=== PATIENT | female | born 2000 | race Caucasian/White ===

== ENCOUNTER 2024-01-26 23:01 | Emergency (ER) | payer OTHER, SELFPAY ==
[2024-01-26 23:03] VITALS: BP 180/106
[2024-01-27 00:21] VITALS: BMI 41.0
[2024-01-27] MEDS: TYLENOL 650 MG PO (00:31)
--- NOTE | 2024-01-27 01:18 | ED.GENMED ---
History of Present Illness
General
Chief Complaint: Musculo-Skeletal Complaint
Source: patient
Exam Limitations: none
Time Seen by Provider: 01/27/24 01:11
Nursing documentation reviewed up to this point in time: agreed with
Travel History
Have you had any contact with someone who has COVID-19?: No
Do you have any symptoms of coronavirus? Fever > 100 degrees, chills, cough, shortness of breath, sore throat, loss of taste or smell, muscle aches, or headache?: No
History of Present Illness
History of Present Illness:
pt is a 24 y/O F with h/o asthma, GERD
here with left lateral ankle pain/swelling after falling down abou 5 steps today
she inverted and scraped in lef tankle
she has been able to walk but has had increasing swelling and pain
no fever, chills, head strike, nauea, vomiting, syncope, knee pain
Past History
Past History
ED Past Medical History: GERD, Psychiatric (Depression, ADHD, ) and Other (Recurrent right lower quadrant pain, right ovarian cyst.)
ED Past Surgical History: Appendectomy and Tonsilectomy
Social History
Tobacco: Non-smoker
Alcohol: None
Personal: Single
Living: with family
Employment: Employed
Family History
Family History: Other (noncontributory)
Review of Systems
Review of Systems
Allergies reviewed?: Yes
All Other Systems: Not applicable
Phy Exam
Physical Exam
Physical Exam:
GENERAL: Alert , in no apparent distress, comfortable at rest
HEAD: NCAT
CV: 2+ DP PULSES B/L
NEUROLOGICAL: Alert and oriented, no focal neuro deficits, , 5/5 strength, sensation intact, ambulation slight limp right leg
SKIN: Warm and dry, superficial abrasio left lateralankle
MUSCULOSKELETAL: mod STS left ankle with tenderness to malleolus latearlly; pain with inversion and eversion;
no tenderness at the base of the 5th metatarsal, no other foot tenderness
no knee/prox tib/fib tenderness, full painless ROM;
PSYCH: Normal and appropriate interaction.
Course
Orders/Labs/Results
Orders:
Orders
01/26/24 23:06
Ankle, left 3 view CR [CR Ankle - Left Min 3 Views ] Urgent
Comment:
Reason For Exam: FALL
01/27/24 00:26
Acetaminophen [Tylenol] 650 mg .ROUTE .STK-MED ONE
01/27/24 00:30
Acetaminophen [Tylenol] 650 mg PO NOW STA
Vital Signs
Initial and Last Documented VS:
Initial Vital Signs
Temp Pulse Resp BP Pulse Ox
98.1 F 116 18 180/106 97
01/26/24 23:03 01/26/24 23:03 01/26/24 23:03 01/26/24 23:03 01/26/24 23:03
Last Documented Vital Signs
Temp Pulse Resp BP Pulse Ox
98.1 F 86 20 151/105 99
01/26/24 23:03 01/27/24 01:25 01/27/24 01:25 01/27/24 01:25 01/27/24 01:25
MDM/Problems Addressed
Differential Diagnosis Includes:
ankle sprain, fracture
MDM/Problems Addressed:
24-year-old female with an inversion injury to her left ankle and abrasion while she was walking down the steps and accidentally slipped down 5 or 6 steps. No head strike, no loss of consciousness. No other injuries. She was able to walk on it
for a few hours before the pain and swelling got more significant. She was hypertensive and tachycardia on arrival, we will recheck her vital signs. X-ray independently reviewed by me and negative for fracture. She does have a fair amount of soft
tissue swelling and tenderness to the anterior tip of her lateral malleolus. Will place in a cam boot, crutches as needed, follow-up Ortho
*Critical Care Note
Total Time (30-74mins, 75-104mins- exclusive of procedures): Not Applicable
ED Attending Note
-
Portions of this chart may have been created with voice recognition software.� Occasional wrong word or��sound alike� substitutions may have occurred due to the inherent limitations of voice recognition software.
Discharge Plan
Departure
Patient Disposition: Home (Routine Discharge)
Date of Disposition: 01/27/24
Time of Disposition: 01:22
Patient with high blood pressure during this ER visit?: Yes
Covid-19: Not Applicable
Discharge Problem:
Right ankle sprain
Instructions: Sprain (DC), BLOOD PRESSURE
Prescriptions:
No Action
albuterol sulfate 90 mcg/actuation Hfa Aerosol Inhaler
1 inh INHALATION ONCE
acetaminophen [acetaminophen] 325 mg tablet
650 mg PO Q4HPRN PRN (Reason: mild pain) Qty: 1 0RF
fluoxetine [Prozac] 40 mg Capsule
40 mg PO DAILY
famotidine [Pepcid] 40 mg Tablet
40 mg PO HS
aripiprazole [Abilify] 5 mg Tablet
5 mg PO DAILY
misoprostol [Cytotec] 100 mcg Tablet
PO ONCE
Referrals:
Sha Stephens MD [Active] - Follow up in 5-7 days (ortho)
Myrna Cunningham MD [Family Provider] -
Stand Alone Forms: Return to Work
Activity Restrictions/Additional Instructions:
Your x-ray appears negative for fracture. You likely sprained your ankle. Take the boot off during the night, put it on during the day, ice off-and-on several times throughout the day with the boot off. Take ibuprofen or Tylenol as needed for
pain.
Follow-up with orthopedics as needed.
Interventions
Interventions:
*Risk Screen - Suicide Last Done: 01/26/24 23:03
*General Assessment Last Done: 01/27/24 02:06
*Neglect/Abuse Screening Last Done: 01/26/24 23:03
ED- Fall Risk Assessment Last Done: 01/27/24 00:51
*ED COVID-19 Vaccine History Last Done: 01/27/24 02:06
*Nursing Disposition Last Done: 01/27/24 02:06
ED-Musculoskeletal Assessment Last Done: 01/27/24 00:51
ED- Neurological Assessment Last Done: 01/27/24 00:51
ED-Skin Assessment Last Done: 01/27/24 00:51
Discharge Date and Time
Discharge Date/Time: 01/27/24 01:55
Print Language: [email or web address]
[2024-01-27 01:25] VITALS: BP 151/105
== END 2024-01-27 01:55 | disposition home or self-care (01) ==
LOC: EMR 23:01
PROVIDERS: EMERGENCY PHYSICIAN Emergency Medicine; FAMILY PHYSICIAN Family Medicine
DX: S93.401A Sprain of unspecified ligament of right ankle, initial encounter (principal); W10.9XXA Fall (on) (from) unspecified stairs and steps, initial encounter; R03.0 Elevated blood-pressure reading, without diagnosis of hypertension; J45.909 Unspecified asthma, uncomplicated; K21.9 Gastro-esophageal reflux disease without esophagitis
CPT/HCPCS: 99283; 73610